=== PATIENT | female | born 1990 | race African-American/Black ===

== ENCOUNTER 2023-01-08 10:47 | Emergency (ER) | payer OTHER, SELFPAY ==
[2023-01-08 11:00] VITALS: BP 118/78; PULSE 83; RESP 18; TEMP 36.6; O2SAT 98; BMI 31.3
--- NOTE | 2023-01-08 11:29 | ED.GENADULT ---
HPI - General Adult General Chief complaint: Urogenital-Female Stated complaint: lump in lt side groin area Time Seen by Provider: 01/08/23 10:55 Source: patient Mode of arrival: Ambulatory Limitations: no limitations History of Present Illness HPI narrative: Patient is a 32-year-old female who is here for evaluation of a lump in her left-sided groin region. She also stated that she is now starting to develop a lump in the right side. It does not tender to palpation. She also has a rash on her vaginal area. All the symptoms started within the past 3-4 days. She stated that approximately 2 weeks ago she was tested for ?everything? with regard to sexually transmitted diseases. Was diagnosed with bacterial vaginosis. Only took 2 doses of the medication but left them at home when she left home. She denies any urinary symptoms. No change in bowel habits. No fevers. No prior history of sexually transmitted diseases. Related Data Previous Rx's Medication Instructions Recorded metronidazole 500 mg tablet 500 mg PO BID 7 days #14 tabs 01/08/23 Review of Systems Constitutional Constitutional: Reports system reviewed and no additional complaints, except as documented Gastrointestinal Gastrointestinal: Reports system reviewed and no additional complaints, except as documented Genitourinary Genitourinary: Reports system reviewed and no additional complaints, except as documented Integumentary/Breasts Skin/Breast: Reports system reviewed and no additional complaints, except as documented Exam Initial Vital Signs Initial Vital Signs: Vital Signs Temperature 97.8 F 01/08/23 11:00 Pulse Rate 83 01/08/23 11:00 Respiratory Rate 18 01/08/23 11:00 Blood Pressure 118/78 01/08/23 11:00 Pulse Oximetry 98 01/08/23 11:00 Oxygen Delivery Method Room Air 01/08/23 11:00 Const General: cooperative, comfortable and No ill appearing [facility] Head: normal to inspection and normocephalic GI Inspection: normal to inspection and non-distended Palpation: soft and No tender Other: Patient does have a 2 cm x 1 cm freely movable lymph node in the left inguinal region. A smaller subcentimeter lymph node in the right inguinal region. No overlying skin changes. She does have white vaginal discharge. Skin Other: Patient does have a half a cm by 0.25 cm area of redness in the right upper peroneal region. There are no vesicles. No pustules. No surrounding erythema. No ulcerations. Neuro General: patient alert, patient awake and moves all extremities Course Vital Signs Vital signs: Vital Signs - 8 hr 01/08/23 11:00 Temperature 97.8 F Pulse Rate 83 Respiratory Rate 18 Blood Pressure 118/78 Pulse Oximetry 98 Oxygen Delivery Method Room Air Medical Decision Making MDM Narrative Medical decision making narrative: Patient does have a physical exam that is consistent with enlarged lymph nodes in the inguinal region. Two weeks ago she was tested for sexually transmitted diseases and she reports that was negative. She is not completed the course of bacterial vaginosis. She is having some white vaginal discharge so I will write her a prescription for bacterial vaginosis that she can start taking as directed. She does have a small area of redness in the right perineal region. The appearance is not consistent with herpes, chancroid, syphilis or warts. It is not ulcerated. There are no pustules. It is also not consistent with a cellulitis. Unsure the etiology of this rash. Unsure if it is related to the enlarged lymph nodes. No indication for any radiologic studies. I did talk to the patient regarding all of this. Did inform her that if the rash starts to worsen or she develops other symptoms that are specific with the above-mentioned disease processes that she should return to the emergency department. Patient expressed understanding and agreement. Discharge Plan Departure Patient Disposition: Home Clinical Impression: Inguinal lymphadenopathy, Bacterial vaginosis, Rash Instructions: DI for Bacterial Vaginosis Activity Restrictions/Additional Instructions: A prescription for an antibiotic for the course and bacterial vaginosis was sent to [facility]'s per your request. I suspect that the enlarged lymph nodes will improve over the next couple days but if they do not or you develop any new symptoms or the area of the rash develops any blisters or worsens then you do need to be re-evaluated. Prescriptions: New metronidazole 500 mg tablet 500 mg PO BID 7 Days Qty: 14 0RF Referrals: Miscellaneous,Doctor [Primary Care Provider] - Stand Alone Forms: Patient Portal/API
[2023-01-08 11:31] VITALS: BP 118/78; PULSE 83; RESP 18; TEMP 36.6; O2SAT 99
--- NOTE | 2023-01-08 11:35 | PC.NURSE ---
Pt reports rash on genital area. Provider w/ RN performed visual exam of area and palpation of lymph nodes. Pt tolerated exam well.
== END 2023-01-08 11:45 | disposition home or self-care (01) ==
PROVIDERS: Emergency Provider Emergency Medicine
DX: R59.0 Localized enlarged lymph nodes (principal); N76.0 Acute vaginitis
CPT/HCPCS: 99281